=== PATIENT | female | born 1945 | race Caucasian/White ===

== ENCOUNTER 2018-06-11 03:10 | Emergency (ER) | payer MEDICARE, OTHER ==
[~2018-06-11] VITALS: Ht 165.1 cm; Wt 62.7 kg
[2018-06-11 03:14] VITALS: Ht 165.1 cm; Wt 62.7 kg
[2018-06-11 05:44] VITALS: BP 176/89
== END 2018-06-11 05:45 | disposition home or self-care (01) ==
LOC: D.ER 03:10
DX: S01.112A Laceration without foreign body of left eyelid and periocular area, initial encounter (principal); W10.9XXA Fall (on) (from) unspecified stairs and steps, initial encounter; Y93.89 Activity, other specified; Y92.89 Other specified places as the place of occurrence of the external cause